=== PATIENT | male | born 1970 | race Caucasian/White ===

== ENCOUNTER 2020-11-28 23:55 | Inpatient (IN) | payer OTHER ==
[~2020-11-28] VITALS: Ht 177.8 cm; Wt 61.4 kg
[2020-11-29 03:28] LABS: BASOPHILS % (AUTO) 0 % (0-1); EOSINOPHILS % (AUTO) 0 % (1-7); LYMPHOCYTES % (AUTO) 3 % (22-44); MEAN CORPUSCULAR HGB CONC 33.9 g/dL (33.2-36.2); MEAN PLATELET VOLUME 8.2 fL (7.4-10.4); MONOCYTES % (AUTO) 8 % (2-9); NEUTROPHILS % (AUTO) 89 % (42-75); PLATELET COUNT 357 x10^3/uL (130-400); RED BLOOD COUNT 5.68 x10^6/uL (4.38-5.82); RED CELL DISTRIBUTION WIDTH 14.3 % (9.4-14.8)
[2020-11-29 03:35] LABS: ALBUMIN 4.2 g/dL (3.4-5.0); ANION GAP 11 mmol/L (5-15); CALCIUM 10.5 mg/dL (8.5-10.1); CHLORIDE 99 mmol/L (98-107); SALICYLATE LEVEL 1.9 mg/dL (2.8-20.0)
[2020-11-29 03:38] LABS: ALANINE AMINOTRANSFERASE 36 U/L (12-78); ALKALINE PHOSPHATASE 153 U/L (45-117); BILIRUBIN,TOTAL 1.1 mg/dL (0.2-1.0); TOTAL PROTEIN 9.3 g/dL (6.4-8.2)
--- NOTE | 2020-11-29 04:00 | NUR ---
NIL X 1
--- NOTE | 2020-11-29 04:45 | NUR ---
PT AMBULATED TO BATHROOM WITH STEADY GAIT OBTAIN UA
--- NOTE | 2020-11-29 04:50 | NUR ---
PT C/O OF MID ABD PAIN SINCE YESTERDAY DENIES, N/V/D/ AND FEVER/CHILLS. STATES HE TOOK HEROIN TODAY. ATTACHED TO MONITORS VSS. AVANIN AT MOMENT. WCTM
[2020-11-29 05:16] LABS: AMPHETAMINE SCREEN, URINE Positive (Negative); BARBITURATE SCREEN, URINE Negative (Negative); BENZODIAZEPINE SCREEN, URINE Negative (Negative); CANNABINOID SCREEN, URINE Negative (Negative); COCAINE SCREEN, URINE Negative (Negative); METHADONE SCREEN, URINE Negative (Negative); OPIATE SCREEN, URINE Negative (Negative)
--- NOTE | 2020-11-29 05:39 | NUR ---
PT AMBULATED TO BATHROOM AND BACK TO ROOM WITH STEADY GAIT
[2020-11-29] MEDS ORDERED: SODIUM CHLORIDE 0.9% 1,000ML IVBOLUS ONE (06:00)
[2020-11-29] MEDS ORDERED: SODIUM CHLORIDE FLUSH 10ML SYR IVF ONE (06:00)
--- NOTE | 2020-11-29 06:14 | NUR ---
PT OFF UNIT IN IMAGING
--- NOTE | 2020-11-29 06:26 | NUR ---
[facility]. Pt admitted to heroin use this morning. Pt is laert and oriented x4, and per EMS pt is having paranoia and hallucnations. Pt admits to heroin and meth use. TRIAGE NOTE
--- NOTE | 2020-11-29 06:27 | NUR ---
PT ATTEMPTING STOOL AND UA SAMPLE AMBULATED WITH STEADY GAIT
[2020-11-29 06:54] LABS: MICROSCOPIC INDICATED
[2020-11-29 07:03] LABS: OCCULT BLOOD POSITIVE (NEGATIVE)
--- NOTE | 2020-11-29 07:04 | NUR ---
PT UPRIGHT ON GURNEY RESTING CALMLY WITH EYES CLOSED, NAD, NO NEEDS AT THIS TIME, CALL LIGHT WITHIN REACH.
--- NOTE | 2020-11-29 07:07 | NUR ---
GAVE REPORT TO MARIA G JIMÉNEZ, TRANSFER OF CARE
--- NOTE | 2020-11-29 08:05 | NUR ---
PT UPRIGHT ON GURNEY AWAKE & COMFORTABLE, GOT OOB "TO FIX THE BED" & DISLODGED PIV, NAD, COMFORT MEASURES PROVIDED, CALL LIGHT WITHIN REACH.
[2020-11-29] MEDS ORDERED: CEFTRIAXONE 1,000 MG in DEXTROSE 5% 50 ML IVPB ONE (09:00)
--- NOTE | 2020-11-29 09:02 | NUR ---
PT REMAINS UPRIGHT ON GURNEY AWAKE & COMFORTABLE, [facility] AT BS FOR EVAL, NAD, NO NEEDS AT THIS TIME, CALL LIGHT WITHIN REACH.
[2020-11-29] MEDS: CEFTRIAXONE 1,000 MG in DEXTROSE 5% 50 ML IVPB SCH (09:28)
[2020-11-29] MEDS ORDERED: ONDANSETRON 2MG/ML, 2ML IVPush PRN (09:30)
[2020-11-29] MEDS ORDERED: SENNA/DOCUSATE TABLET PO PRN (09:30)
[2020-11-29] MEDS ORDERED: POLYETHYLENE GLYCOL 17 GM PACKET PO PRN (09:30)
[2020-11-29] MEDS ORDERED: ONDANSETRON ODT 4 MG PO PRN (09:30)
[2020-11-29] MEDS ORDERED: PANTOPRAZOLE 40 MG IV ONE (09:31)
[2020-11-29] MEDS: LACTATED RINGERS 1,000 ML IV SCH ×2 (09:41→21:56)
[2020-11-29] MEDS: PANTOPRAZOLE 40 MG IV IVPush SCH ×2 (09:41→21:54)
--- NOTE | 2020-11-29 10:02 | NUR ---
PT UPRIGHT ON GURNEY RESTING CALMLY WITH EYES CLOSED, NAD, NO NEEDS AT THIS TIME, CALL LIGHT WITHIN REACH.
[2020-11-29 10:23] LABS: CLOSTRIDIUM DIFFICILE ANTIGEN NEGATIVE; CLOSTRIDIUM DIFFICILE TOXIN NEGATIVE (Negative)
--- NOTE | 2020-11-29 10:54 | NUR ---
REPORT GIVEN TO MONAE JIMÉNEZ.
--- NOTE | 2020-11-29 11:01 | NUR ---
Pt to be admitted to [facility], room 402-2. Report called to RILEY.
[2020-11-29 11:27] VITALS: BP 124/88
[2020-11-29 14:13] VITALS: BP 128/91
[2020-11-29 17:43] VITALS: BP 107/63
[2020-11-29 19:20] VITALS: BP 137/96
[2020-11-30] MEDS: ACETAMINOPHEN 500 MG TABLET PO PRN ×3 (01:02→20:13)
[2020-11-30 02:24] VITALS: BP 127/92
[2020-11-30 05:57] LABS: MEAN CORPUSCULAR HEMOGLOBIN 33.6 pg (27.5-34.5); MEAN CORPUSCULAR HGB CONC 33.2 g/dL (33.2-36.2); MEAN PLATELET VOLUME 8.5 fL (7.4-10.4); PLATELET COUNT 274 x10^3/uL (130-400); RED BLOOD COUNT 4.76 x10^6/uL (4.38-5.82); RED CELL DISTRIBUTION WIDTH 14.5 % (9.4-14.8)
[2020-11-30 06:08] LABS: CHLORIDE 101 mmol/L (98-107)
[2020-11-30 06:21] LABS: ALANINE AMINOTRANSFERASE 21 U/L (12-78); ALBUMIN 2.8 g/dL (3.4-5.0); ALKALINE PHOSPHATASE 102 U/L (45-117); ANION GAP 6 mmol/L (5-15); BILIRUBIN,TOTAL 0.7 mg/dL (0.2-1.0); CALCIUM 8.8 mg/dL (8.5-10.1); CREATININE 1.13 mg/dL (0.7-1.3); TOTAL PROTEIN 6.9 g/dL (6.4-8.2)
[2020-11-30 06:30] LABS: <PLATELET ESTIMATE> ADEQUATE; <PLT MORPHOLOGY> NORMAL PLT MORPH; BAND#(MANUAL) 0.62 x10^3/uL; BANDS%(MANUAL) 8 % (0-7); EOS#(MANUAL) 0.16 x10^3/uL (0.0-0.4); EOS% (MANUAL) 2 % (1-7); LYMPH#(MANUAL) 1.25 x10^3/uL (1-3.4); LYMPHS% (MANUAL) 16 % (22-44); MONOS#(MANUAL) 1.33 x10^3/uL (0.3-2.7); MONOS% (MANUAL) 17 % (2-9); SEG#(MANUAL) 4.45 x10^3/uL (1.8-6.8); SEGS% (MANUAL) 57 % (42-75)
[2020-11-30 08:08] VITALS: BP 130/84
[2020-11-30] MEDS: LACTATED RINGERS 1,000 ML IV SCH (08:48)
[2020-11-30] MEDS: PANTOPRAZOLE 40 MG IV IVPush SCH ×2 (08:48→20:13)
[2020-11-30] MEDS: CEFTRIAXONE 1,000 MG in DEXTROSE 5% 50 ML IVPB SCH (10:27)
[2020-11-30 12:08] VITALS: BP 127/87
[2020-11-30 18:45] VITALS: BP 131/90
[2020-12-01 00:54] VITALS: BP 128/80
[2020-12-01 05:34] LABS: MEAN CORPUSCULAR HGB CONC 33.6 g/dL (33.2-36.2); MEAN PLATELET VOLUME 8.5 fL (7.4-10.4); PLATELET COUNT 225 x10^3/uL (130-400); RED BLOOD COUNT 4.36 x10^6/uL (4.38-5.82)
[2020-12-01 05:44] LABS: ALBUMIN 2.2 g/dL (3.4-5.0); ANION GAP 5 mmol/L (5-15); CALCIUM 8.4 mg/dL (8.5-10.1); CHLORIDE 102 mmol/L (98-107)
[2020-12-01 05:48] LABS: ALANINE AMINOTRANSFERASE 24 U/L (12-78); ALKALINE PHOSPHATASE 85 U/L (45-117); BILIRUBIN,TOTAL 0.4 mg/dL (0.2-1.0); CREATININE 0.68 mg/dL (0.7-1.3); TOTAL PROTEIN 5.8 g/dL (6.4-8.2)
[2020-12-01] MEDS: LACTATED RINGERS 1,000 ML IV SCH (06:13)
[2020-12-01 06:21] LABS: BAND#(MANUAL) 0.45 x10^3/uL; BANDS%(MANUAL) 10 % (0-7); LYMPH#(MANUAL) 1.22 x10^3/uL (1-3.4); LYMPHS% (MANUAL) 27 % (22-44); MONOS#(MANUAL) 0.72 x10^3/uL (0.3-2.7); MONOS% (MANUAL) 16 % (2-9); REACTIVE LYMPHS # (MANUAL) 0.05 x10^3/uL (0-0); REACTIVE LYMPHS % (MANUAL) 1 % (0-0); SEG#(MANUAL) 2.07 x10^3/uL (1.8-6.8); SEGS% (MANUAL) 46 % (42-75)
[2020-12-01 06:22] LABS: <PLATELET ESTIMATE> ADEQUATE; <PLT MORPHOLOGY> NORMAL PLT MORPH
[2020-12-01] MEDS: PANTOPRAZOLE 40 MG IV IVPush SCH ×2 (08:24→20:34)
[2020-12-01] MEDS: CEFTRIAXONE 1,000 MG in DEXTROSE 5% 50 ML IVPB SCH (08:25)
[2020-12-01 08:35] VITALS: BP 128/75
[2020-12-01] MEDS: ACETAMINOPHEN 500 MG TABLET PO PRN ×2 (13:09→20:34)
[2020-12-01 13:44] VITALS: BP 122/78
[2020-12-01 20:19] VITALS: BP 127/84
[2020-12-02] MEDS: LACTATED RINGERS 1,000 ML IV SCH (01:23)
[2020-12-02 01:26] VITALS: BP 126/77
[2020-12-02 07:40] VITALS: BP 117/80
[2020-12-02] MEDS: PANTOPRAZOLE 40 MG IV IVPush SCH (08:31)
[2020-12-02] MEDS: CEFTRIAXONE 1,000 MG in DEXTROSE 5% 50 ML IVPB SCH (08:32)
[2020-12-02 13:30] VITALS: BP 134/83
[2020-12-02] MEDS: OMEPRAZOLE 20 MG CAPSULE.DR PO SCH (16:18)
[2020-12-02 20:15] VITALS: BP 111/70
[2020-12-03 02:14] VITALS: BP 130/74
[2020-12-03] MEDS: OMEPRAZOLE 20 MG CAPSULE.DR PO SCH ×2 (05:24→16:13)
[2020-12-03 07:17] VITALS: BP 134/88
[2020-12-03 12:28] VITALS: BP 136/84
[2020-12-03 18:14] VITALS: BP 150/88
[2020-12-03 18:48] VITALS: BP 133/83
== END 2020-12-03 20:40 | disposition home or self-care (01) | DRG 872 ==
LOC: ED 11-29 05:46 → EDIP 11-29 08:01 → 4WST 11-29 11:09 → 3N 11-30 23:19
PROVIDERS: ADMIT Internal Medicine; ATTEND Family Medicine
DX: A41.9 Sepsis, unspecified organism (principal); N17.9 Acute kidney failure, unspecified; D75.1 Secondary polycythemia; F11.10 Opioid abuse, uncomplicated; F15.10 Other stimulant abuse, uncomplicated; F17.200 Nicotine dependence, unspecified, uncomplicated; F41.9 Anxiety disorder, unspecified; N30.91 Cystitis, unspecified with hematuria; Z59.0 Homelessness
CPT/HCPCS: 36415; 74176; 80053; 80299; 80307; 80320; 80329; 81001; 82272; 83605; 84145; 85014; 85018; 85025; 87040; 87046; 87086; 87324; 87427; 89055; 96360; 96361; 99285; G0378; J0696; Q0162; C9113; G0480; J7030; J7120; Q0177